=== PATIENT | female | born 1965 | race Caucasian/White ===

== ENCOUNTER → 2016-07-23 | Day surgery (SDC) | payer OTHER ==
[2016-07-21 13:37] VITALS: BMI 37.0
[~2016-07-23] MED LIST: GLUCAGON 1 MG/ML VIAL ONE; LACTATED RINGERS 1,000 ML IV SCH; LIDOCAINE 1% 20 ML VIAL (10MG/ML) FOR IV START SQ ONE; LIDOCAINE 1% INJ 10MG/ML (20 ML MDV) ONE; PROPOFOL 10 MG/ML 20 ML VIAL IV ONE
[2016-07-23 08:25] VITALS: RESP 16; TEMP 98.2
--- NOTE | 2016-07-23 08:48 | P.GSHP ---
History of Present Illness H&P Date: 07/23/16 Chief Complaint: Screening colonoscopy, history of diverticulitis This a 50-year-old female who presents today for screening colonoscopy. Patient has had a history of diverticulitis. Past Medical History Past Medical History: GERD/Reflux, Hypertension, Renal Disease Additional Past Medical History / Comment(s): kidney stones, diverticulosis. SMALL RT KIDNEY-WORKS OFF AND ON. CHRONIC KIDNEY AND BLADDER INFECTIONS SINCE History of Any Multi-Drug Resistant Organisms: None Reported Past Surgical History: Tubal Ligation Past Anesthesia/Blood Transfusion Reactions: No Reported Reaction Past Psychological History: No Psychological Hx Reported Smoking Status: Never smoker Past Alcohol Use History: None Reported Past Drug Use History: None Reported - Past Family History Brother(s) Family Medical History: Deep Vein Thrombosis (DVT) Medications and Allergies Home Medications Medication Instructions Recorded Confirmed Type Atenolol 25 mg PO DAILY 07/21/16 07/23/16 History Allergies Allergy/AdvReac Type Severity Reaction Status Date / Time cephalexin [From Keflex] Allergy Rash/Hives Verified 07/21/16 13:31 latex Allergy Anaphylaxis Verified 07/21/16 13:31 Surgical - Exam Vital Signs Temp Pulse Resp BP Pulse Ox 98.2 F 66 16 135/84 100 07/23/16 08:23 07/23/16 08:23 07/23/16 08:23 07/23/16 08:23 07/23/16 08:23 - General well developed, no distress - Eyes PERRL - ENT normal pinna - Neck no masses - Respiratory normal expansion - Cardiovascular Rhythm: regular - Abdomen Abdomen: soft, non tender Assessment and Plan Plan: History of Diverticulitis. We'll perform screening colonoscopy
--- NOTE | 2016-07-23 09:17 | P.OP ---
Date of Procedure: 07/23/16 Preoperative Diagnosis: Screening colonoscopy Postoperative Diagnosis: Incomplete colonoscopy Procedure(s) Performed: Colonoscopy Anesthesia: MAC Surgeon: Sotero Hatsings Pathology: none sent Condition: stable Disposition: PACU Description of Procedure: The patient's placed on the endoscopy table in the lateral position. She received IV sedation. Digital rectal exam was performed which revealed no abnormalities. The flexible colonoscope was then placed patient anus and passed approximately 30 cm. There was a very sharp and in the sigmoid colon. Scope could not be placed beyond this. This point the scope was withdrawn and a pediatric scope was placed in the rectum. The scope was passed up to approximately 30 cm once again the pediatric scope could not past the bed of the colon. This with the scope was withdrawn the rectum appeared normal. The scope was withdrawn for patient. Patient was scheduled for a barium enema.
[2016-07-23 11:03] VITALS: BP 134/81; PULSE 56
--- NOTE | 2016-07-23 12:42 | FL ---
EXAMINATION TYPE: FL barium enema DATE OF EXAM ORDERED: 07/23/2016 12:29 PM HISTORY: Diverticulitis. COMPARISON: None. FINDINGS: Plain film shows a moderate dextroscoliosis. There are phleboliths within the pelvis. Barium was introduced into the rectum and there was approximately a 3 cm area of narrowing in the dis alphonso sigmoid at the junction with the descending colon. Some barium extended beyond this. The examinat ion was terminated at this time to prevent the barium from inspissated within the colon. IMPRESSION: SHORT SEGMENT NARROWING OF THE PROXIMAL SIGMOID COLON COMPATIBLE WITH DIVERTICULITIS. REPEAT EXAMINAT ION OR REPEAT COLONOSCOPY WOULD BE SUGGESTED FOLLOWING TREATMENT.
== END | disposition home or self-care (01) ==
LOC: ORWHC2ENDO 07:45
PROVIDERS: ATTEND Surgery
DX: Z12.11 Encounter for screening for malignant neoplasm of colon (principal); Z87.19 Personal history of other diseases of the digestive system; K57.30 Diverticulosis of large intestine without perforation or abscess without bleeding; I10 Essential (primary) hypertension; Z79.899 Other long term (current) drug therapy; Z88.1 Allergy status to other antibiotic agents; Z91.040 Latex allergy status
CPT/HCPCS: 81025; 74270; J1610; J2001; J2704; G0104; 45330; 99153

== ENCOUNTER → 2016-08-04 | Outpatient (CLI) | payer OTHER ==
--- NOTE | 2016-08-04 10:55 | EST ---
DATE OF SERVICE: 08/04/2016 AGE: 51Y SEX: F HT: 61" WT: 197 lbs. Protocol Bran: X Other: Cardiolite Stage: II Dur. of Exercise: 5:20 *Heart Rate Blood Pressure *Rest: 70 Rest: 167/98 * *Max. Achieved: 158 Maximum BP: 238/94 85% PMHR: 145 100% PMHR: 170 *METS: 6.5 INDICATIONS: Hypertension, pre-op. MEDICATIONS: Atenolol. Mrs. Szymanski is a 51-year-old female with history of hypertension and previous CVA who is admitted to the hospital with complaints of chest pain and shortness of breath. Baseline EKG showed sinus rhythm with normal TN interval and QRS duration. Blood pressure at rest is 167/98 with a pulse rate of 70. Patient walked on the Bran protocol for 5 minutes and 20 seconds, achieving a maximum heart rate of 158 with a blood pressure of 238/94. EKGs taken during and after the exercise did not reveal any changes from the baseline. FINAL IMPRESSION: 1. Negative stress test. 2. Patient did not experience any chest pain. 3. No arrhythmias were detected. 4. Report on the nuclear images to be given by the radiologist.
--- NOTE | 2016-08-04 11:50 | NM ---
EXAMINATION TYPE: NM stress cardiolite complete DATE OF EXAM: 08/04/2016 11:29 AM COMPARISON: NONE HISTORY: Low blood pressure TECHNIQUE: After the intravenous administration of 10.2 mCi Tc 99m Sestamibi - Rest images obtained 60 minutes post injection. The patient exercised using a DEBORAH protocol and 1 minute prior to peak exercise was injected with 25.6 mCi Tc 99m Sestamibi - Stress images obtained 20 minutes post injecti on. FINDINGS: There is 2 uptake in the anterior wall of the left ventricle of radiopharmaceutical. There is no fixe d filling defect. There is no discrete ischemic change. Wall motion is normal and ejection fraction i s normal at 67%. IMPRESSION: I do not see convincing evidence for inducible ischemic change at this time.
== END | disposition home or self-care (01) ==
LOC: RADNMMAIN 08-03 09:01
PROVIDERS: ATTEND Surgery
DX: R03.0 Elevated blood-pressure reading, without diagnosis of hypertension (principal)
CPT/HCPCS: 93017; 78452; A9500

== ENCOUNTER 2016-08-09 05:48 | Inpatient (IN) | payer OTHER ==
[2016-08-03 10:46] VITALS: BMI 37.2
[~2016-08-09 05:48] MED LIST changes: +CLINDAMYCIN 900 MG in DEXTROSE 5% IN WATER 50 ML IVPB ONE; +GENTAMICIN 350 MG in SODIUM CHLORIDE 0.9% 100 ML IVPB ONE; -GLUCAGON 1 MG/ML VIAL ONE; +HEPARIN SODIUM,PORCINE 5,000 UNIT/ML 1 ML VIAL SQ ONE; -LACTATED RINGERS 1,000 ML IV SCH; -LIDOCAINE 1% 20 ML VIAL (10MG/ML) FOR IV START SQ ONE; -LIDOCAINE 1% INJ 10MG/ML (20 ML MDV) ONE; -PROPOFOL 10 MG/ML 20 ML VIAL IV ONE
[2016-08-09] MEDS ORDERED: DEXAMETHASONE SOD PHOSPHATE 10 MG/ML 1 ML VIAL IV ONE ×2 (05:56→08:16)
[2016-08-09] MEDS ORDERED: LIDOCAINE 1% 20 ML VIAL (10MG/ML) FOR IV START INTRADERMA PRN (05:56)
[2016-08-09] MEDS ORDERED: SCOPOLAMINE 1.5MG/72HR PATCH TRANSDERM ONE (05:56)
[2016-08-09] MEDS ORDERED: ONDANSETRON 4 MG/2 ML VIAL IVP ONE ×2 (05:56→08:16)
--- NOTE | 2016-08-09 07:26 | P.GSHP ---
History of Present Illness H&P Date: 08/09/16 Chief Complaint: Diverticulitis This a 51-year-old female who presents today for low anterior section. Patient underwent previous colonoscopy and was found have a diverticular stricture of the sigmoid colon. Patient states that she's had change in bowel habits and difficulty passing stools. Her barium enema shows a very tight stricture along short segment of the sigmoid colon. - Constitutional Constitutional: Reports as per HPI Past Medical History Past Medical History: CVA/TIA, Hypertension, Renal Disease Additional Past Medical History / Comment(s): HX OF CVA 17 YRS AGO-STATES SLIGHT WEAKNESS RIGHT JAW., VARICOSE VEINS, SCOLIOSIS, HX OF LOW IRON, KIDNEY STONES, HOSPITALIZED 02/2016 WITH DIVERTICULITIS,. SMALL RT KIDNEY-WORKS OFF AND ON. CHRONIC KIDNEY AND BLADDER INFECTIONS SINCE , DRY SKIN, BRUISES ON LEGS. , STATES RECENT X-RAY SHOWED ENLARGED HEART. History of Any Multi-Drug Resistant Organisms: None Reported Past Surgical History: Tubal Ligation Additional Past Surgical History / Comment(s): COLONOSCOPY Past Anesthesia/Blood Transfusion Reactions: Previous Problems w/ Anesthesia Additional Past Anesthesia/Blood Transfusion Reaction / Comment(s): WITH COLONOSCOPY HER HEAD FELT STRANGE- EVERYTHING WAS LOUD AND SHE FELT PANICY. HER CHILDREN WAKE UP DURING SURGERY. Past Psychological History: Anxiety Smoking Status: Never smoker Past Alcohol Use History: None Reported Past Drug Use History: None Reported - Past Family History Brother(s) Family Medical History: Deep Vein Thrombosis (DVT) Additional Family Medical History / Comment(s): CABG X2 Medications and Allergies Home Medications Medication Instructions Recorded Confirmed Type Atenolol 25 mg PO DAILY 07/21/16 08/03/16 History Allergies Allergy/AdvReac Type Severity Reaction Status Date / Time cephalexin [From Keflex] Allergy Rash/Hives, Verified 08/03/16 10:28 Sore Itchy throat latex Allergy Anaphylaxis Verified 08/03/16 10:28 Surgical - Exam - General well developed, no distress - Eyes PERRL - ENT normal pinna - Neck no masses - Respiratory normal expansion - Cardiovascular Rhythm: regular - Abdomen Abdomen: soft, non tender Assessment and Plan Plan: History of diverticulitis with stricture. We'll perform a low anterior resection.
[2016-08-09] MEDS ORDERED: LIDOCAINE 1% 20 ML VIAL (10MG/ML) FOR IV START INTRADERMA ONE (07:56)
[2016-08-09] MEDS: LACTATED RINGERS 1,000 ML IV SCH ×2 (07:56→19:41)
[2016-08-09] MEDS ORDERED: HEPARIN SODIUM,PORCINE 5,000 UNIT/ML 1 ML VIAL SQ ONE (08:23)
[2016-08-09] MEDS ORDERED: PROPOFOL 10 MG/ML 20 ML VIAL IV ONE (08:54)
[2016-08-09] MEDS ORDERED: GLYCOPYRROLATE 0.2 MG/ML 2 ML VIAL ONE (08:54)
[2016-08-09] MEDS ORDERED: LIDOCAINE 1% INJ 10MG/ML (20 ML MDV) ONE (08:54)
[2016-08-09] MEDS ORDERED: fentaNYL (PF) 50 MCG/ML 2 ML AMP ONE (08:54)
[2016-08-09] MEDS ORDERED: NEOSTIGMINE 1 MG/ML 10 ML VIAL ONE (08:54)
[2016-08-09] MEDS ORDERED: MIDAZOLAM 2 MG/2 ML VIAL ONE (08:54)
[2016-08-09] MEDS ORDERED: KETOROLAC 30 MG/ML 1 ML VIAL ONE (08:54)
[2016-08-09] MEDS ORDERED: ePHEDrine 50 MG/ML 1 ML AMP ONE (08:54)
[2016-08-09] MEDS ORDERED: SUCCINYLCHOLINE CHLORIDE 100 MG/5 ML SYR IV ONE (08:54)
[2016-08-09] MEDS ORDERED: ROCURONIUM BROMIDE 10 MG/ML 10 ML VIAL IV ONE (08:54)
[2016-08-09] MEDS ORDERED: LACTATED RINGERS 1,000 ML IV ONE (09:34)
[2016-08-09] MEDS ORDERED: BENZOCAINE/MENTHOL LOZENG 1 EACH LOZENGE MUCOUS MEM PRN (10:30)
--- NOTE | 2016-08-09 10:30 | P.OP ---
Date of Procedure: 08/09/16 Preoperative Diagnosis: Diverticulitis Postoperative Diagnosis: Diverticulitis with sigmoid colon stricture Procedure(s) Performed: Low anterior section Anesthesia: SHARDAA Surgeon: Sotero Hastings Estimated Blood Loss (ml): 40 Pathology: other (Sigmoid colon) Condition: stable Disposition: PACU Description of Procedure: DESCRIPTION OF PROCEDURE: The patient was placed on the operating table in the supine position. Patient received a general anesthesia. Patient was then placed in the dorsal lithotomy position. The patients abdomen was prepped and draped in the usual sterile fashion. Through a low midline incision, the abdomen was entered. The Raji retractor was placed in the wound. The stomach appeared normal. The small bowel appeared normal. The liver appeared normal. The right colon and transverse colon appeared normal. On the left colon, there was an extensive diverticulosis noted. The sigmoid colon was then mobilized by dividing the white line of Toldt with electrocautery. At this point, the proximal sigmoid colon was transected with a GI stapler after a window had been made in the mesentery. The distal sigmoid colon was then dissected. Mesentery was taken down between Belkis clamps and ligated with #0 silk ties. At a point beyond the lesion, the bowel was then transected with a Proximate stapler. This was then removed. The splenic flexure was then taken down in order to provide adequate lengthening of the sigmoid colon. At this point, the auto purse-string suture device was placed across the proximal colon and fired. The colon was then opened. The 29 mm EEA anvil was then placed into the colon and then the purse- string was secured. The EEA stapler device was then placed in the patients anus and passed into the rectum. The nail for the EEA was then brought out through the distal rectum and then attached to the anvil. The EEA stapler device was then fired. The anastomosis was inspected. There were 2 good donuts of tissue removed from the EEA stapler. The anastomosis was then tested under water and there was no air leak seen. At this point the abdomen was then irrigated. There was no bleeding seen. The fascia was then closed with double stranded #1 PDS. The skin was closed with sandra. The patient tolerated the procedure well.
[2016-08-09] MEDS: HYDROmorphone 1 MG/ML 1 ML SYRINGE IVP PRN ×7 (10:38→20:33)
[2016-08-09] MEDS: D5-0.45% NACL WITH KCL 20MEQ/L 1,000 ML IV SCH ×3 (12:06→23:35)
[2016-08-09] MEDS: METOCLOPRAMIDE 5 MG/ML 2 ML VIAL IVP SCH ×3 (12:06→23:34)
[2016-08-09 14:44] LABS: Anion Gap 12 mmol/L; Blood Urea Nitrogen 11 mg/dL (7-17); Calcium 8.6 mg/dL (8.4-10.2); Carbon Dioxide 24 mmol/L (22-30); Chloride 103 mmol/L (98-107); Glucose 171 mg/dL (74-99); Non-African American GFR(MDRD) >60 (>60 ml/min/1.73 sqM); Potassium 4.5 mmol/L (3.5-5.1); Sodium 139 mmol/L (137-145)
--- NOTE | 2016-08-09 14:53 | P.CONS ---
History of Present Illness - Reason for Consult Consult date: 08/09/16 Medical management Requesting physician: Sotero Hastings - Chief Complaint Diverticular stricture - History of Present Illness This is a 51-year-old female with past medical history significant for prior episode of diverticulitis who was recently evaluated and underwent colonoscopy showing sigmoid colon diverticular stricture. He should was having difficulties with her bowel movement recently. She was admitted to the hospital and underwent a low anterior resection of the sigmoid colon. She tolerated the surgery well. She is currently on liquid diet. I was asked to see her for medical management. Patient does not have any specific concerns at this time. Review of Systems Review of system: 14 points review of systems were obtained and were negative except to what were mentioned in the HPI. Past Medical History Past Medical History: CVA/TIA, Hypertension, Renal Disease Additional Past Medical History / Comment(s): HX OF CVA 17 YRS AGO-STATES SLIGHT WEAKNESS RIGHT JAW., VARICOSE VEINS, SCOLIOSIS, HX OF LOW IRON, KIDNEY STONES, HOSPITALIZED 02/2016 WITH DIVERTICULITIS,. SMALL RT KIDNEY-WORKS OFF AND ON. CHRONIC KIDNEY AND BLADDER INFECTIONS SINCE , DRY SKIN, BRUISES ON LEGS. , STATES RECENT X-RAY SHOWED ENLARGED HEART. History of Any Multi-Drug Resistant Organisms: None Reported Past Surgical History: Tubal Ligation Additional Past Surgical History / Comment(s): COLONOSCOPY Past Anesthesia/Blood Transfusion Reactions: Previous Problems w/ Anesthesia Additional Past Anesthesia/Blood Transfusion Reaction / Comm: WITH COLONOSCOPY HER HEAD FELT STRANGE- EVERYTHING WAS LOUD AND SHE FELT PANICY. HER CHILDREN WAKE UP DURING SURGERY. Past Psychological History: Anxiety Smoking Status: Never smoker Past Alcohol Use History: None Reported Past Drug Use History: None Reported - Past Family History Brother(s) Family Medical History: Deep Vein Thrombosis (DVT) Additional Family Medical History / Comment(s): CABG X2 Medications and Allergies Home Medications Medication Instructions Recorded Confirmed Type Atenolol 25 mg PO DAILY 07/21/16 08/09/16 History Omeprazole 40 mg PO DAILY 08/09/16 08/09/16 History Allergies Allergy/AdvReac Type Severity Reaction Status Date / Time cephalexin [From Keflex] Allergy Rash/Hives, Verified 08/03/16 10:28 Sore Itchy throat erythromycin base Allergy Nausea & Verified 08/09/16 07:34 Vomiting latex Allergy Anaphylaxis Verified 08/03/16 10:28 Physical Exam Vitals: Vital Signs Temp Pulse Resp BP Pulse Ox 08/09/16 11:30 71 18 135/62 96 08/09/16 11:15 78 18 151/66 93 L 08/09/16 11:00 64 18 147/61 95 08/09/16 10:48 78 18 159/72 96 08/09/16 10:37 98 F 93 18 182/82 94 L 08/09/16 07:40 98 F 78 16 139/67 95 Intake and Output 08/08/16 08/09/16 08/09/16 22:59 06:59 14:59 Intake Total 1955 Output Total 490 Balance 1466 Intake: IV 1955 Output: Urine 475 Estimated Blood Loss 15 General: The patient is awake and alert, in no distress, and does not appear acutely ill. Eye: extra-ocular movements are intact; there is normal conjunctiva bilaterally. . Neck: The neck is supple, there is no tenderness or JVD. Cardiovascular: Normal S1-S2, no S3-S4, no murmurs. Respiratory: Lungs clear to auscultation bilaterally with no wheezes rhonchi or rales. Gastrointestinal: Abdomen is soft, nontender. Musculoskeletal: Normal ROM, no tenderness, There is no pedal edema. Neurological: There are no obvious motor or sensory deficits. Speech is normal. Skin: Skin is warm and dry and no rashes or lesions are noted. Assessment and Plan Plan: 1. Diverticular stricture of the sigmoid colon on postoperative day #0 status post low anterior resection 2. History of diverticulitis approximately 4 months ago 3. Essential hypertension: Blood pressure within acceptable range 4. GERD Today, I reviewed her medication list. Continue current regimen. Continue postoperative care. Thank you very much for the consultation. I will continue to follow up on the patient closely.
[2016-08-09 14:59] LABS: Basophils % (A) 0 %; CH 28.4; CHCM 32.1; Eosinophils % (A) 0 %; HCT 45.7 % (34.0-46.0); HDW 2.35; HGB 14.4 gm/dL (11.4-16.0); Luc # (Auto) 0.07; Luc % (Auto) 0; Lymphocytes # (A) 0.6 k/uL (1.0-4.8); Lymphocytes % (A) 3 %; MCHC 31.6 g/dL (31.0-37.0); MCV 88.7 fL (80.0-100.0); Mean Platelet Volume 7.2; Monocytes # (A) 0.3 k/uL (0-1.0); Monocytes % (A) 2 %; Neutrophils # (A) 16.3 k/uL (1.3-7.7); Neutrophils % (A) 94 %; RBC 5.15 m/uL (3.80-5.40); RDW 13.6 % (11.5-15.5); WBC 17.3 k/uL (3.8-10.6); WBC (Perox) 17.66
[2016-08-09] MEDS: HEPARIN SODIUM,PORCINE 5,000 UNIT/ML 1 ML VIAL SQ SCH ×2 (16:35→23:35)
[2016-08-09] MEDS: FAMOTIDINE 20 MG/2 ML VIAL IV SCH (20:18)
[2016-08-10] MEDS: HYDROmorphone 1 MG/ML 1 ML SYRINGE IVP PRN ×5 (01:47→22:19)
[2016-08-10] MEDS: METOCLOPRAMIDE 5 MG/ML 2 ML VIAL IVP SCH ×4 (05:13→23:52)
[2016-08-10] MEDS: FAMOTIDINE 20 MG/2 ML VIAL IV SCH (07:56)
[2016-08-10] MEDS: PANTOPRAZOLE 40 MG TABLET PO SCH (07:56)
[2016-08-10] MEDS: ATENOLOL 25 MG TAB PO SCH (07:56)
[2016-08-10] MEDS: HEPARIN SODIUM,PORCINE 5,000 UNIT/ML 1 ML VIAL SQ SCH ×3 (07:56→23:52)
[2016-08-10] MEDS: D5-0.45% NACL WITH KCL 20MEQ/L 1,000 ML IV SCH ×3 (11:46→23:52)
[2016-08-10] MEDS: ONDANSETRON 4 MG/2 ML VIAL IVP PRN (11:58)
--- NOTE | 2016-08-10 14:33 | P.PN ---
Subjective Principal diagnosis: Diverticulitis with sigmoid colon stricture Patient is a 51-year-old white female with medical history significant for diverticulitis and diverticular stricture of the sigmoid colon. Patient presented to the hospital for elective low anterior resection and is evaluated on the surgical unit where she is postop day #1. Patient is doing well. Complains of mild nausea without vomiting. Denies chills, fevers, shortness of breath, or chest pain. Incisional pain controlled. Patient reports minimal flatus without bowel movement. Tolerating clear liquid diet. Patient has been up ambulating. Antony-Erwin drainage with 15 mL of serosanguineous drainage in the last 24 hours. Urine output adequate. Afebrile. WBC 17.3. Objective - Vital Signs Vital signs: Vital Signs Temp 98 F 08/10/16 07:00 Pulse 86 08/10/16 07:00 Resp 16 08/10/16 07:00 BP 129/73 08/10/16 07:00 Pulse Ox 95 08/10/16 07:00 Intake & Output 08/09/16 08/10/16 08/10/16 18:59 06:59 18:59 Intake Total 3056 1000 Output Total 790 715 600 Balance 2266 -715 400 Weight 89.358 kg Intake: IV 1956 Intake, IV Titration 1000 Amount D5-0.45% NaCl with KCl 1000 20Meq/l 1,000 ml @ 125 mls/hr IV .Q8H [facility] Rx#: [id number] Oral 1100 Output: Drainage 15 Right Abdomen 15 Urine 775 700 600 Uretheral (Gomez) 700 300 Estimated Blood Loss 15 Other: Voiding Method Indwelling Catheter Indwelling Catheter # Voids 0 - Exam GENERAL: Pt awake and alert, well-appearing, well-nourished, and in no acute distress. LUNGS: Breath sounds clear to auscultation bilaterally. No wheezes, rales, or rhonchi. HEART: Heart S1, S2, no S3 or S4. Regular rate and rhythm. No murmurs, rubs or gallops. ABDOMEN: Soft, obese, mild incisional tenderness, nondistended, hypoactive bowel sounds. Abdominal dressing dry and intact. ISRAEL drain is compressed, intact. EXTREMITIES: 2+ peripheral pulses. No edema, clubbing or cyanosis. No calf tenderness. NEUROLOGICAL: Pt oriented x 3. - Labs CBC & Chem 7: 08/09/16 14:10 08/09/16 14:10 Labs: Abnormal Lab Results - Last 24 Hours (Table) 08/09/16 08/09/16 Range/Units 14:10 14:10 WBC 17.3 H (3.8-10.6) k/uL Neutrophils # 16.3 H (1.3-7.7) k/uL Lymphocytes # 0.6 L (1.0-4.8) k/uL Glucose 171 H (74-99) mg/dL Assessment and Plan Plan: Impression: 1. History of diverticulitis with sigmoid colon stricture status post low anterior resection on 08/09/2016. 2. Leukocytosis. Plan: Continue to monitor patient. Continue clear liquid diet. Continue supportive treatment and pain management. Continue IV hydration. Continue GI and DVT prophylaxis. Continue incentive spirometry 10 times an hour while awake. Increase ambulation. Continue medical management. Repeat CBC and BMP in a.m. The above impression and plan have been discussed and directed by Dr. Hastings. Helen ZAVALA acting as scribe for Dr. Hastings.
[2016-08-10] MEDS: KETOROLAC 30 MG/ML 1 ML VIAL IVP PRN ×2 (15:01→20:02)
--- NOTE | 2016-08-10 16:23 | P.PN ---
Subjective Patient reported that her pain is not well controlled this morning. She is passing gas but no bowel movement as of yet. Objective - Vital Signs Vital signs: Vital Signs Temp 98.3 F 08/10/16 14:26 Pulse 96 08/10/16 14:26 Resp 16 08/10/16 14:26 BP 120/78 08/10/16 14:26 Pulse Ox 85 L 08/10/16 14:26 Intake & Output 08/09/16 08/10/16 08/10/16 18:59 06:59 18:59 Intake Total 3056 1000 Output Total 790 715 600 Balance 2266 -715 400 Weight 89.358 kg Intake: IV 1956 Intake, IV Titration 1000 Amount D5-0.45% NaCl with KCl 1000 20Meq/l 1,000 ml @ 125 mls/hr IV .Q8H [facility] Rx#: [id number] Oral 1100 Output: Drainage 15 Right Abdomen 15 Urine 775 700 600 Uretheral (Gomez) 700 300 Estimated Blood Loss 15 Other: Voiding Method Indwelling Catheter Indwelling Catheter # Voids 0 1 - Exam General: The patient is awake and alert, in no distress Eye: there is normal conjunctiva bilaterally. Neck: The neck is supple, there is no JVD. Cardiovascular: Normal S1-S2, no S3-S4, no murmurs. Respiratory: Lungs clear to auscultation bilaterally Gastrointestinal: Abdomen is soft, with mild tenderness Musculoskeletal: There is no pedal edema. Neurological:. Speech is normal. Skin: Skin is warm and dry - Labs CBC & Chem 7: 08/09/16 14:10 08/09/16 14:10 Assessment and Plan Plan: 1. Diverticular stricture of the sigmoid colon on postoperative day #1 status post low anterior resection 2. History of diverticulitis approximately 4 months ago 3. Essential hypertension: Blood pressure within acceptable range 4. GERD Continue postoperative care. Repeat Work in the morning. Diet will be advanced as directed by surgery. I would continue to follow up on her closely.
[2016-08-10] MEDS: LACTATED RINGERS 1,000 ML IV SCH (23:49)
[2016-08-11] MEDS: KETOROLAC 30 MG/ML 1 ML VIAL IVP PRN (05:15)
[2016-08-11] MEDS: METOCLOPRAMIDE 5 MG/ML 2 ML VIAL IVP SCH ×4 (05:16→23:14)
[2016-08-11 08:09] LABS: Anion Gap 11 mmol/L; Blood Urea Nitrogen 8 mg/dL (7-17); Calcium 8.3 mg/dL (8.4-10.2); Carbon Dioxide 22 mmol/L (22-30); Chloride 104 mmol/L (98-107); Glucose 139 mg/dL (74-99); Non-African American GFR(MDRD) >60 (>60 ml/min/1.73 sqM); Potassium 4.5 mmol/L (3.5-5.1); Sodium 137 mmol/L (137-145)
[2016-08-11 08:23] LABS: Basophils % (A) 0 %; CH 28.3; CHCM 32.1; Eosinophils # (A) 0.1 k/uL (0-0.7); Eosinophils % (A) 1 %; HCT 42.1 % (34.0-46.0); HDW 2.34; HGB 13.4 gm/dL (11.4-16.0); Luc # (Auto) 0.06; Luc % (Auto) 0; Lymphocytes # (A) 1.4 k/uL (1.0-4.8); Lymphocytes % (A) 9 %; MCH 28.2 pg (25.0-35.0); MCHC 31.7 g/dL (31.0-37.0); MCV 88.7 fL (80.0-100.0); Mean Platelet Volume 7.3; Monocytes # (A) 0.8 k/uL (0-1.0); Monocytes % (A) 5 %; Neutrophils # (A) 12.8 k/uL (1.3-7.7); Neutrophils % (A) 84 %; RBC 4.74 m/uL (3.80-5.40); RDW 13.7 % (11.5-15.5); WBC 15.2 k/uL (3.8-10.6); WBC (Perox) 16.03
[2016-08-11] MEDS: HEPARIN SODIUM,PORCINE 5,000 UNIT/ML 1 ML VIAL SQ SCH ×3 (09:20→23:14)
[2016-08-11] MEDS: PANTOPRAZOLE 40 MG TABLET PO SCH (09:20)
[2016-08-11] MEDS: ATENOLOL 25 MG TAB PO SCH (09:20)
[2016-08-11] MEDS ORDERED: HYDROcodone/APAP 5-325MG 1 EACH TAB PO PRN (11:04)
[2016-08-11] MEDS: HYDROcodone/APAP 5-325MG 1 EACH TAB PO PRN ×3 (11:28→23:12)
[2016-08-11] MEDS: D5-0.45% NACL WITH KCL 20MEQ/L 1,000 ML IV SCH (11:32)
[2016-08-11] MEDS ORDERED: guaiFENesin-Coden 100-10MG/5ML 10 ML CUP PO PRN (13:07)
--- NOTE | 2016-08-11 13:10 | P.PN ---
Subjective Patient was having a lot of cough since last night that was productive of yellowish sputum and subsequently this morning she had hemoptysis with bright red blood. She also was passing gas this morning and long with it was some liquid and bright red blood. She denies any abdominal pain. She is hemodynamically stable. Hemoglobin is stable. Objective - Vital Signs Vital signs: Vital Signs Temp 98.5 F 08/11/16 07:00 Pulse 105 H 08/11/16 08:00 Resp 16 08/11/16 08:00 BP 153/79 08/11/16 07:00 Pulse Ox 90 L 08/11/16 07:00 Intake & Output 08/10/16 08/11/16 08/11/16 18:59 06:59 18:59 Intake Total 1000 400 Output Total 600 15 Balance 400 385 Intake: Intake, IV Titration 1000 Amount D5-0.45% NaCl with KCl 1000 20Meq/l 1,000 ml @ 125 mls/hr IV .Q8H [facility] Rx#: [id number] Oral 400 Output: Drainage 15 Right Abdomen 15 Urine 600 Uretheral (Gomez) 300 Other: Voiding Method Toilet Toilet # Voids 1 1 - Exam General: The patient is awake and alert, in no distress Eye: there is normal conjunctiva bilaterally. Neck: The neck is supple, there is no JVD. Cardiovascular: Normal S1-S2, no S3-S4, no murmurs. Respiratory: Lungs clear to auscultation bilaterally Gastrointestinal: Abdomen is soft, with mild tenderness Musculoskeletal: There is no pedal edema. Neurological:. Speech is normal. Skin: Skin is warm and dry - Labs CBC & Chem 7: 08/11/16 07:23 08/11/16 07:23 Labs: Abnormal Lab Results - Last 24 Hours (Table) 08/11/16 08/11/16 Range/Units 07:23 07:23 WBC 15.2 H (3.8-10.6) k/uL Neutrophils # 12.8 H (1.3-7.7) k/uL Glucose 139 H (74-99) mg/dL Calcium 8.3 L (8.4-10.2) mg/dL Assessment and Plan Plan: 1. Diverticular stricture of the sigmoid colon on postoperative day #2 status post low anterior resection 2. History of diverticulitis approximately 4 months ago 3. Essential hypertension: Blood pressure within acceptable range 4. GERD 5. Acute bacterial bronchitis with mild hemoptysis: Chest x-ray ordered. Start azithromycin. Robitussin-AC as needed for severe cough Continue postoperative care. Repeat Work in the morning. Diet will be advanced as directed by surgery. I would continue to follow up on her closely.
--- NOTE | 2016-08-11 13:23 | XR ---
EXAMINATION TYPE: XR chest 2V DATE OF EXAM: 08/11/2016 1:19 PM COMPARISON: NONE HISTORY: Shortness of breath. TECHNIQUE: Frontal and lateral views of the chest are obtained. FINDINGS: There are perihilar opacities bilaterally most prominent posterior inferior aspect right u pper lobe. No pleural effusion or pneumothorax is seen bilaterally. The cardiac silhouette size is up per limits of normal. The osseous structures are intact. IMPRESSION: Right greater than left perihilar/upper lobe edema and/or infiltrates.
[2016-08-11] MEDS: LEVOFLOXACIN 500MG-D5W PMX 500 MG in DEXTROSE/WATER 1 100ML.BAG IVPB SCH (14:12)
[2016-08-11] MEDS ORDERED: IPRATROPIUM-ALBUTEROL 3 ML NEB INHALATION PRN (15:38)
--- NOTE | 2016-08-11 15:42 | P.PN ---
Subjective Principal diagnosis: Diverticulitis with sigmoid colon stricture Patient is a 51-year-old white female with medical history significant for diverticulitis and diverticular stricture of the sigmoid colon. Patient presented to the hospital for elective low anterior resection and is evaluated on the surgical unit where she is postop day #2. Patient is complaining of cough with blood-tinged secretions. Patient states she had a watery bloody bowel movement last night. Patient denies chills, fevers, nausea, vomiting, or chest pain. Incisional pain controlled. Tolerating clear liquid diet. Patient has been up ambulating. Antony-Erwin drainage with 15 mL of serosanguineous drainage in the last 24 hours. Urine output adequate. Afebrile. WBC decreased to 15.2. Hemoglobin stable at 13.4. Objective - Vital Signs Vital signs: Vital Signs Temp 98.1 F 08/11/16 14:05 Pulse 91 08/11/16 14:05 Resp 16 08/11/16 14:05 BP 139/91 08/11/16 14:05 Pulse Ox 89 L 08/11/16 14:05 Intake & Output 08/10/16 08/11/16 08/11/16 18:59 06:59 18:59 Intake Total 1000 400 180 Output Total 600 15 Balance 400 385 180 Intake: Intake, IV Titration 1000 Amount D5-0.45% NaCl with KCl 1000 20Meq/l 1,000 ml @ 20 mls /hr IV .Q24H [facility] Rx#: [id number] Oral 400 180 Output: Drainage 15 Right Abdomen 15 Urine 600 Uretheral (Gomez) 300 Other: Voiding Method Toilet Toilet # Voids 1 1 3 - Exam GENERAL: Pt awake and alert, well-appearing, well-nourished, and in no acute distress. LUNGS: Breath sounds diminished to auscultation bilaterally. No wheezes, rales , or rhonchi. HEART: Heart S1, S2, no S3 or S4. Regular rate and rhythm. No murmurs, rubs or gallops. ABDOMEN: Soft, obese, mild incisional tenderness, nondistended, active bowel sounds. Abdominal dressing dry and intact. [place] drain is compressed, intact. EXTREMITIES: 2+ peripheral pulses. No edema. No calf tenderness. NEUROLOGICAL: Pt oriented x 3. - Labs CBC & Chem 7: 08/11/16 07:23 08/11/16 07:23 Labs: Abnormal Lab Results - Last 24 Hours (Table) 08/11/16 08/11/16 Range/Units 07:23 07:23 WBC 15.2 H (3.8-10.6) k/uL Neutrophils # 12.8 H (1.3-7.7) k/uL Glucose 139 H (74-99) mg/dL Calcium 8.3 L (8.4-10.2) mg/dL Assessment and Plan Plan: Impression: 1. History of diverticulitis with sigmoid colon stricture status post low anterior resection on 08/09/2016. 2. Leukocytosis, improved. 3. Cough with mild blood-tinged sputum. Plan: Obtain chest x-ray. Decrease IV fluids to KVO. Order DuoNeb updraft treatments. Start patient on IV Levaquin 500 mg daily. Continue clear liquid diet. Continue supportive treatment and pain management. Continue GI and DVT prophylaxis. Continue incentive spirometry 10 times an hour while awake. Increase ambulation. Continue medical management. Repeat CBC and BMP in a.m. The above impression and plan have been discussed and directed by Dr. Hastings. Helen ZAVALA acting as scribe for Dr. Hastings.
[2016-08-11] MEDS: AZITHROMYCIN 500 MG TAB PO SCH (16:19)
[2016-08-11] MEDS: IPRATROPIUM-ALBUTEROL 3 ML NEB INHALATION SCH ×2 (17:28→18:59)
[2016-08-12] MEDS: HYDROcodone/APAP 5-325MG 1 EACH TAB PO PRN ×3 (05:26→14:49)
[2016-08-12] MEDS: METOCLOPRAMIDE 5 MG/ML 2 ML VIAL IVP SCH ×2 (05:26→14:20)
[2016-08-12] MEDS: LACTATED RINGERS 1,000 ML IV SCH (07:03)
[2016-08-12 07:10] VITALS: RESP 16
[2016-08-12] MEDS: HEPARIN SODIUM,PORCINE 5,000 UNIT/ML 1 ML VIAL SQ SCH ×2 (08:12→17:40)
[2016-08-12] MEDS: AZITHROMYCIN 500 MG TAB PO SCH (08:12)
[2016-08-12] MEDS: PANTOPRAZOLE 40 MG TABLET PO SCH (08:12)
[2016-08-12] MEDS: ATENOLOL 25 MG TAB PO SCH (08:12)
[2016-08-12] MEDS: IPRATROPIUM-ALBUTEROL 3 ML NEB INHALATION SCH ×3 (08:19→16:29)
[2016-08-12 08:24] LABS: Basophils % (A) 0 %; CH 28.3; CHCM 32.1; Eosinophils # (A) 0.3 k/uL (0-0.7); Eosinophils % (A) 3 %; HCT 39.9 % (34.0-46.0); HDW 2.35; HGB 12.9 gm/dL (11.4-16.0); Luc # (Auto) 0.16; Luc % (Auto) 1; Lymphocytes # (A) 1.8 k/uL (1.0-4.8); Lymphocytes % (A) 14 %; MCH 28.6 pg (25.0-35.0); MCHC 32.3 g/dL (31.0-37.0); MCV 88.6 fL (80.0-100.0); Monocytes # (A) 0.8 k/uL (0-1.0); Monocytes % (A) 7 %; Neutrophils # (A) 9.4 k/uL (1.3-7.7); Neutrophils % (A) 75 %; RBC 4.51 m/uL (3.80-5.40); RDW 13.4 % (11.5-15.5); WBC 12.5 k/uL (3.8-10.6); WBC (Perox) 12.92
[2016-08-12 08:39] LABS: Anion Gap 7 mmol/L; Blood Urea Nitrogen 9 mg/dL (7-17); Calcium 8.2 mg/dL (8.4-10.2); Carbon Dioxide 27 mmol/L (22-30); Chloride 104 mmol/L (98-107); Glucose 113 mg/dL (74-99); Non-African American GFR(MDRD) >60 (>60 ml/min/1.73 sqM); Potassium 4.4 mmol/L (3.5-5.1); Sodium 138 mmol/L (137-145)
--- NOTE | 2016-08-12 12:06 | P.PN ---
Subjective Patient is status post lower anterior resection. Patient is still having a productive cough with pinkish discoloration to her phlegm. She's noted some improvement since starting antibiotic. Denies any chest pain, shortness of breath, nausea or vomiting. No bowel movement yet. She is passing gas. Denies any difficulty urinating. Objective - Vital Signs Vital signs: Vital Signs Temp 98.7 F 08/12/16 07:10 Pulse 88 08/12/16 08:30 Resp 16 08/12/16 08:00 BP 117/79 08/12/16 07:10 Pulse Ox 92 L 08/12/16 08:21 Intake & Output 08/11/16 08/12/16 08/12/16 18:59 06:59 18:59 Intake Total 180 40 Output Total 300 Balance -120 40 Weight 89.358 kg Intake: Oral 180 40 Output: Urine 300 Other: Voiding Method Toilet Toilet Toilet # Voids 3 2 - Exam Head normocephalic Neck supple Lungs clear to auscultation bilaterally no wheezing or crackles Heart regular rate and rhythm S1-S2, no rub or gallop Abdomen is soft nontender nondistended positive bowel sounds no hepatosplenomegaly Extremities no edema Neuro alert and orientated to 3 - Labs CBC & Chem 7: 08/12/16 07:38 08/12/16 07:35 Labs: Abnormal Lab Results - Last 24 Hours (Table) 08/12/16 08/12/16 Range/Units 07:35 07:38 WBC 12.5 H (3.8-10.6) k/uL Neutrophils # 9.4 H (1.3-7.7) k/uL Glucose 113 H (74-99) mg/dL Calcium 8.2 L (8.4-10.2) mg/dL Assessment and Plan Plan: 1. Diverticular stricture of the sigmoid colon on postoperative day #3 status post low anterior resection. Currently on a clear liquid diet 2. History of diverticulitis approximately 4 months ago 3. Essential hypertension: Blood pressure within acceptable range 4. GERD 5. pneumonia with mild hemoptysis: Continue azithromycin and Levaquin. Robitussin-AC as needed for severe cough. Chest x-ray revealing right greater than left perihilar/upper lobe edema and/or infiltrates. Also check BNP level DVT prophylaxis subcu heparin
[2016-08-12 13:52] VITALS: BP 116/71; PULSE 85; TEMP 98.6
[2016-08-12] MEDS: LEVOFLOXACIN 500MG-D5W PMX 500 MG in DEXTROSE/WATER 1 100ML.BAG IVPB SCH (14:19)
--- NOTE | 2016-08-12 16:01 | P.DS ---
Providers Date of admission: 08/09/16 05:48 Expected date of discharge: 08/12/16 Attending physician: Sotero Hastings Consults: 08/09/16 10:30 Consult Physician Routine Consulting Provider: Cody Paredes Consult Reason/Comments: Medical management Do you want consulting provider notified?: Yes Primary care physician: Dayana Clark Hospital Course: Patient is a 51-year-old white female with medical history significant for diverticulitis and diverticular stricture of the sigmoid colon. Patient presented to the hospital for elective low anterior resection. Patient tolerated procedure well. Postoperatively, patient developed a productive cough with pinkish discoloration to her phlegm. Chest x-ray with possible right upper lobe edema or infiltrate. Patient was started on antibiotics for empiric coverage. Patient significantly improved and was felt stable for discharge to home with follow-up in the outpatient setting. Discharge diagnoses: 1. History of diverticulitis with sigmoid colon stricture status post low anterior resection on 08/09/2016. 2. Leukocytosis, improved. 3. Cough with mild blood-tinged sputum with chest x-ray showing possible right upper lobe edema infiltrate. The above impression and plan have been discussed and directed by Dr. Hastings. Helen ZAVALA acting as scribe for Dr. Hastings. Pertinent Studies: Chest x-ray Procedures: No anterior resection Patient Condition at Discharge: Good Plan - Discharge Summary New Discharge Prescriptions: HYDROcodone/APAP 7.5-325MG [[place] 7.5-325] 1 tab PO Q6HR PRN #28 tab PRN Reason: Pain Levofloxacin [Levaquin] 500 mg PO DAILY #5 tab Discharge Medication List Atenolol 25 mg PO DAILY 07/21/16 [History] Omeprazole 40 mg PO DAILY 08/09/16 [History] HYDROcodone/APAP 7.5-325MG [[place] 7.5-325] 1 tab PO Q6HR PRN #28 tab 08/10/16 [ Rx] Levofloxacin [Levaquin] 500 mg PO DAILY #5 tab 08/12/16 [Rx] Follow up Appointment(s)/Referral(s): Dayana Clark DO [Primary Care Provider] - 1 Week (Office closed. Patient to call and schedule follow up appointment.) Sotero Hastings MD [STAFF PHYSICIAN] - 08/17/16 2:00 pm Patient Instructions/Handouts: Colectomy (DC), Staple Care (DC), Full Liquid Diet (DC) Activity/Diet/Wound Care/Special Instructions: No heavy lifting, pushing, or pulling items greater than 10 pounds. Soft diet Shower daily, no soaking in bath tubs, pools, or hot tubs. No driving while taking pain medication. Notify surgeon with any signs or symptoms of infection, increased pain, or not tolerating diet. Discharge Disposition: HOME SELF-CARE
[2016-08-12] MEDS: ONDANSETRON 4 MG/2 ML VIAL IVP PRN (17:37)
== END 2016-08-12 18:55 | disposition home or self-care (01) | DRG 329 ==
LOC: 2ORWHC 05:48 → 3SUR 10:55
PROVIDERS: ADMIT Surgery; ATTEND Surgery
PROC: 0DTN0ZZ Resection of Sigmoid Colon, Open Approach (ICD-10-PCS; principal; 2016-08-09 07:40)
DX: K57.92 Diverticulitis of intestine, part unspecified, without perforation or abscess without bleeding (principal); J18.9 Pneumonia, unspecified organism; K56.69 Other intestinal obstruction; M41.9 Scoliosis, unspecified; D72.829 Elevated white blood cell count, unspecified; F41.9 Anxiety disorder, unspecified; I51.7 Cardiomegaly; N27.0 Small kidney, unilateral; I12.9 Hypertensive chronic kidney disease with stage 1 through stage 4 chronic kidney disease, or unspecified chronic kidney disease; K21.9 Gastro-esophageal reflux disease without esophagitis; N18.9 Chronic kidney disease, unspecified; Z86.73 Personal history of transient ischemic attack (TIA), and cerebral infarction without residual deficits; Z87.442 Personal history of urinary calculi; Z88.1 Allergy status to other antibiotic agents; Z91.040 Latex allergy status; Z79.899 Other long term (current) drug therapy
CPT/HCPCS: 71020; 80048; 81025; 83880; 85025; 86850; 86900; 86901; 88307; 94640; 94760